=== PATIENT | female | born 1990 | race Caucasian/White ===

== ENCOUNTER 2020-05-07 16:25 | Emergency (ER) | payer BC ==
[2020-05-07] MEDS ORDERED: Amoxicillin/Clavulanate K 875-125 MG Tab PO ONE (16:26)
--- NOTE | 2020-05-07 16:35 | EDM.PDOC ---
ED HPI GENERAL MEDICAL PROBLEM - General Chief Complaint: Bite:Animal, Insect Stated Complaint: DOG BITE Time Seen by Provider: 05/07/20 16:32 Source of Information: Reports: Patient History Limitations: Reports: No Limitations - History of Present Illness INITIAL COMMENTS - FREE TEXT/NARRATIVE: Rebecca has a dog bite to the right hand. She was babysitting her sister's dog. Otherwise healthy. - Related Data Allergies Allergy/AdvReac Type Severity Reaction Status Date / Time Sulfa (Sulfonamide Allergy Hives Verified 05/07/20 16:53 Antibiotics) ED ROS GENERAL - Review of Systems Review Of Systems: Comprehensive ROS is negative, except as noted in HPI. ED EXAM, ANIMAL BITE - Physical Exam Exam: See Below Exam Limited By: No Limitations General Appearance: Alert, WD/WN Eye Exam: Bilateral Eye: EOMI, Normal Inspection, PERRL Nose: Normal Inspection Throat/Mouth: Normal Inspection Neck: Normal Inspection ED ANIMAL BITE PROCEDURES - Laceration/Wound Repair Right Hand Lac/Wound Length In cm: 2 Appearance: Clean Distal NVT: Neuro & Vascular Intact Anesthetic Type: Local Local Anesthesia - Lidocaine (Xylocaine): 1% with EPI Skin Prep: Chlorhexidine (Hibiciens) Closed With: Sutures Suture Size: 4-0 Suture Type: Prolene Complications: No Course - Vital Signs Last Recorded V/S: Last Vital Signs Temp 98.3 F 05/07/20 17:02 Pulse 70 05/07/20 17:02 Resp 17 05/07/20 17:02 BP 130/66 05/07/20 17:02 Pulse Ox 98 05/07/20 17:02 - Orders/Labs/Meds Orders: Active Orders 24 hr Category Date Time Status Vaccines to be Administered [RC] PER UNIT ROUTINE Care 05/07/20 16:54 Active Meds: Medications Discontinued Medications Generic Name Dose Route Start Last Admin Trade Name Freq PRN Reason Stop Dose Admin Diphtheria/Tetanus/Acell Pertussis 0.5 ml 05/07/20 16:54 05/07/20 16:58 Boostrix IM 05/07/20 16:55 0.5 ml .ONCE ONE Administration Departure - Departure Time of Disposition: 17:17 Disposition: Home, Self-Care 01 Condition: Good Clinical Impression: Dog bite Qualifiers: Encounter type: initial encounter Qualified Code(s): W54.0XXA - Bitten by dog, initial encounter - Discharge Information Instructions: Sutured Wound Care, Animal Bite, Adult Referrals: Inna Aggarwal ESTHETICIAN/SPA COORDINATOR [Primary Care Provider] - Forms: ED Department Discharge Additional Instructions: Take the Augmentin 1 tab 2 x a day. May take Tylenol or Ibuprofen for pain and discomfort. Suture removal in 7 days make an appointment with your Primary Care Provider. May call if you have any questions or come back to the ER if symptoms get acutely worse in any way. Sepsis Event Note (ED) - Focused Exam Vital Signs: Vital Signs Temp Pulse Resp BP Pulse Ox 05/07/20 17:02 98.3 F 70 17 130/66 98 - Problem List & Annotations (1) Dog bite SNOMED Code(s): 316932677, [id number] Code(s): W54.0XXA - BITTEN BY DOG, INITIAL ENCOUNTER Status: Acute Current Visit: No Qualifiers: Encounter type: initial encounter Qualified Code(s): W54.0XXA - Bitten by dog, initial encounter - Problem List Review Problem List Initiated/Reviewed/Updated: Yes - My Orders Last 24 Hours: My Active Orders 05/07/20 16:54 Vaccines to be Administered [RC] PER UNIT ROUTINE - Assessment/Plan Last 24 Hours: My Active Orders 05/07/20 16:54 Vaccines to be Administered [RC] PER UNIT ROUTINE Plan: Tdap addressed. Will also place on prophylactic abx- Augmentin
[2020-05-07] MEDS ORDERED: Diphtheria,Pertussis(Acell),Tetanus Vaccine 0.5 ML Syringe IM ONE (16:54)
== END 2020-05-07 17:10 | disposition home or self-care (01) ==
LOC: FB.ED 16:25
DX: S61.451A Open bite of right hand, initial encounter (principal); Z88.2 Allergy status to sulfonamides; Z23 Encounter for immunization; W54.0XXA Bitten by dog, initial encounter
CPT/HCPCS: 12001; 90471; 90715; 99283; 99283-25; A9270-GY